=== PATIENT | male | born 1975 | race Caucasian/White ===

== ENCOUNTER 2022-04-28 14:02 | Emergency (ER) | payer OTHER ==
[~2022-04-28] VITALS: Ht 185.4 cm; Wt 99.0 kg
[2022-04-28] MEDS ORDERED: IBUP200C25 PO (15:52)
[2022-04-28] MEDS ORDERED: METH-1165 PO (16:18)
[2022-04-28 16:44] VITALS: BP 111/72
== END 2022-04-28 16:46 | disposition home or self-care (01) ==
LOC: M ED 14:02
DX: S39.012A Strain of muscle, fascia and tendon of lower back, initial encounter (principal); W00.0XXA Fall on same level due to ice and snow, initial encounter